=== PATIENT | male | born 1985 | race Caucasian/White ===

== ENCOUNTER 2018-11-08 23:55 | Emergency (ER) | payer SELFPAY ==
[~2018-11-08] VITALS: Ht 170.2 cm; Wt 77.1 kg
[2018-11-09 00:01] VITALS: BP 153/87
--- NOTE | 2018-11-09 00:04 | NUR ---
PT AMBUALTED TO BED 12.
--- NOTE | 2018-11-09 00:10 | NUR ---
PT IS A 32 Y/O MALE WHO PRESENTS TO THE ED C/O LACERATION. PT STATES THAT HE WAS WASHING DISHES AT HOME AND DROPPED AND A PLATE ON HIS LEFT. NOTED 3" LAC TO L PALM, CONTROLLED BLEEDING. PT REPORTS 4/10 ACHING PAIN THAT DOES NOT RADIATE. CMS INTACT, BLEEDING CONTROLLED. PT AWAKE AND ALERT, RR EVEN/UNLABORED. PT REPOSITIONED FOR COMFORT, BED IN LOWEST POSITION. ER MD DR. STARKEY NOTIFIED. WILL CONTINUE TO MONITOR.
[2018-11-09] MEDS ORDERED: LIDOCAINE 1% 500 MG/50 ML VIAL INJ SCH (00:20)
[2018-11-09] MEDS ORDERED: LIDOCAINE 2% 1000 MG/50 ML VIAL INJ ONE (00:32)
[2018-11-09] MEDS ORDERED: BACITRACIN OINT 500 UNITS/GM PKT TP ONE (01:00)
--- NOTE | 2018-11-09 01:08 | NUR ---
APPLIED BACITRACIN ON PT'S LEFT HAND, PLACED A NONADHERANT DRESSING AND A ROLL OF GAUZE.
[2018-11-09 01:24] VITALS: BP 121/42
--- NOTE | 2018-11-09 01:24 | NUR ---
Patient discharged with v/s stable. Written and verbal after care instructions given and explained. Patient verbalized understanding. Ambulatory with steady gait. All questions addressed prior to discharge. Advised to follow up with PMD.
== END 2018-11-09 01:24 | disposition home or self-care (01) ==
LOC: MED 23:55
DX: S61.412A Laceration without foreign body of left hand, initial encounter (principal); W45.8XXA Other foreign body or object entering through skin, initial encounter; Y93.G1 Activity, food preparation and clean up; Y92.89 Other specified places as the place of occurrence of the external cause; Y99.8 Other external cause status
CPT/HCPCS: 12001; 90471; 90715; 99283; J2001